=== PATIENT | male | born 1995 | race Caucasian/White ===

== ENCOUNTER 2018-08-18 06:16 | Emergency (ER) | payer SELFPAY ==
--- NOTE | 2018-08-18 06:31 | ED ---
Substance Abuse/Use - HPI Summary HPI Summary: Patient is a 23-year-old male brought in by the lens for alcohol intoxication on this evening. He states he drank alcohol only and denies any drug use. He has never been seen in the ED prior to this. He denies any falls. He denies any trauma or pain. He is very tearful on arrival. There is no evidence of trauma to the body. Vital signs are stable. He states he takes no medications and denies any allergies. He does state his right shoulder hurts, but states this has been for several months and is not new. Denies any SI or HI. - History Of Current Complaint Chief Complaint: EDSubstanceAbuse Stated Complaint: 2208 Time Seen by Provider: 08/18/18 06:18 Hx Obtained From: Patient Ingestion History: Type/Name Of Drug Overdose Characteristics: Oral Timing Of Abuse: Binge Use Severity Initially: Moderate Severity Currently: Moderate Character: Depressed Aggravating Factor(s): Nothing Alleviating Factor(s): Nothing Associated Signs And Symptoms: Negative - Risk Factor(s) Completed Suicide Risk Factors: Negative - Allergies/Home Medications Allergies/Adverse Reactions: Allergies Allergy/AdvReac Type Severity Reaction Status Date / Time No Known Allergies Allergy Verified 08/18/18 06:26 PMH/Surg Hx/FS Hx/Imm Hx Previously Healthy: Yes - Immunization History Hx Pertussis Vaccination: No Immunizations Up to Date: Yes Infectious Disease History: No Infectious Disease History: Denies: Traveled Outside the [place] in Last 30 Days - Social History Occupation: Employed Part-time Lives: Alone Alcohol Use: Occasionally Hx Substance Use: No Substance Use Type: Reports: None Hx Tobacco Use: No Smoking Status (MU): Never Smoked Tobacco Review of Systems Constitutional: Negative Negative: Fever, Chills, Skin Diaphoresis Negative: Palpitations, Chest Pain Negative: Shortness Of Breath, Cough Genitourinary: Negative Positive: no symptoms reported, see HPI Negative: Arthralgia, Myalgia Negative: Rash, Bruising Negative: Headache, Paresthesia, Numbness Positive: Anxious, Depressed All Other Systems Reviewed And Are Negative: Yes Physical Exam Triage Information Reviewed: Yes Vital Signs On Initial Exam: Initial Vitals Temp Pulse Resp BP Pulse Ox 97.9 F 93 20 138/74 99 08/18/18 06:21 08/18/18 06:21 08/18/18 06:21 08/18/18 06:21 08/18/18 06:21 Vital Signs Reviewed: Yes Appearance: Positive: Well-Appearing, Well-Nourished Skin: Positive: Warm, Skin Color Reflects Adequate Perfusion Head/Face: Positive: Normal Head/Face Inspection. Negative: Cephalohematoma Eyes: Positive: EOMI, NARA, Conjunctiva Clear Neck: Positive: Supple, Nontender, No Lymphadenopathy Respiratory/Lung Sounds: Positive: Clear to Auscultation Cardiovascular: Positive: RRR, Pulses are Symmetrical in both Upper and Lower Extremities Musculoskeletal: Positive: Normal, Strength/ROM Intact Neurological: Positive: Slurred Speech Psychiatric: Positive: Anxious - tearful AVPU Assessment: Alert Diagnostics - Vital Signs Vital Signs Temp Pulse Resp BP Pulse Ox 08/18/18 06:21 97.9 F 93 20 138/74 99 - Laboratory Lab Statement: Any lab studies that have been ordered have been reviewed, and results considered in the medical decision making process. Course/Dx - Course Course Of Treatment: Alcohol obtained. There is no evidence of trauma. Palpation of the head, neck, chest, abdomen and bilateral upper and lower extremities without pain on deep palpation. No abrasions or hematomas present. Patient does not recall the last several hours due to alcohol intoxication. Alcohol 241. Patient is upright and able to ambulate. Friend at bedside. He is OK and safe for discharge. - Diagnoses Provider Diagnoses: Alcohol intoxication Discharge - Sign-Out/Discharge Documenting (check all that apply): Patient Departure - Discharge Plan Condition: Stable Disposition: HOME Patient Education Materials: Alcohol Intoxication (ED) Referrals: No Primary Care Phys,NOPCP [Primary Care Provider] - Additional Instructions: Drink plenty of fluids - Billing Disposition and Condition Condition: STABLE Disposition: Home
[2018-08-18 07:56] VITALS: BP 123/62
== END 2018-08-18 07:54 | disposition home or self-care (01) ==
LOC: ED 06:16
DX: F41.9 Anxiety disorder, unspecified (principal); F32.9 Major depressive disorder, single episode, unspecified
CPT/HCPCS: 36415; 80320; 99282; G0480